=== PATIENT | male | born 1955 | race Caucasian/White ===

== ENCOUNTER 2018-01-08 09:48 | Emergency (ER) | payer OTHER ==
[~2018-01-08] VITALS: Ht 172.7 cm; Wt 79.8 kg
[2018-01-08 10:10] VITALS: Ht 172.7 cm; Wt 79.8 kg
[2018-01-08 11:17] VITALS: BP 142/98
== END 2018-01-08 11:17 | disposition home or self-care (01) ==
LOC: ED 09:48
DX: L02.211 Cutaneous abscess of abdominal wall (principal); F17.210 Nicotine dependence, cigarettes, uncomplicated
CPT/HCPCS: 99406

== ENCOUNTER 2018-12-04 14:50 | Emergency (ER) | payer OTHER ==
[~2018-12-04] VITALS: Ht 172.7 cm; Wt 79.4 kg
[2018-12-04 15:00] VITALS: Ht 172.7 cm; Wt 79.4 kg
[2018-12-04 15:31] LABS: BASOPHIL % 0.9 % (0-2); PLATELET COUNT 324 x10^3mcL (130-400)
[2018-12-04 15:32] LABS: RED CELL DISTRIBUTION WIDTH 15.9 % (11.5-14.5)
[2018-12-04 15:54] LABS: CALCIUM 8.6 mg/dL (8.5-10.1); CARBON DIOXIDE 26.5 mmol/L (21-32); CHLORIDE SERUM 104 mmol/L (98-107); CREATININE SERUM 1.2 mg/dL (0.7-1.3); GFR1 > 60 mL/min; GLUCOSE SERUM 150 mg/dL (74-106); POTASSIUM SERUM 4.4 mmol/L (3.5-5.1); SODIUM SERUM 139 mmol/L (136-145)
[2018-12-04 15:58] LABS: ALBUMIN 3.7 g/dL (3.4-5.0); ALKALINE PHOSPHATASE 62 U/L (46-116); ALT/SGPT 20 U/L (16-63); AST/SGOT 12 U/L (15-37); BILIRUBIN TOTAL 0.5 mg/dL (0.20-1.00); TOTAL PROTEIN, SERUM 6.9 g/dL (6.4-8.2)
[2018-12-05 00:01] VITALS: BP 124/82
== END 2018-12-05 00:01 | disposition short-term general hospital (02) ==
LOC: ED 14:50
DX: R07.89 Other chest pain (principal); K44.9 Diaphragmatic hernia without obstruction or gangrene; F17.210 Nicotine dependence, cigarettes, uncomplicated; E04.1 Nontoxic single thyroid nodule; F15.10 Other stimulant abuse, uncomplicated
CPT/HCPCS: 85378; 99406; J1885; Q0092; Q9967